=== PATIENT | female | born 1960 | race Caucasian/White ===

== ENCOUNTER 2024-08-16 11:58 | Outpatient (REF) | payer OTHER, SELFPAY ==
[2024-08-16 13:34] LABS: Estimated Average Glucose 117 mg/dL; Hemoglobin A1C 100.2615 umol/L; Hemoglobin A1c % 5.7 % (<6.0)
[2024-08-16 14:00] LABS: Anion Gap 12 (12-20); Blood Urea Nitrogen 26 mg/dL (9-16); Calcium 9.1 mg/dL (8.4-10.2); Carbon Dioxide 27 mmol/L (22-29); Chloride 109 mmol/L (96-108); Estimated Glomerular Filt Rate 26; Glucose Random 152 mg/dL (60-115); Potassium 4.7 mmol/L (3.3-5.1); Sodium 143 mmol/L (135-145)
[2024-08-16 14:12] LABS: TSH reflex Free T4 0.55 uIU/mL (0.32-4.0)
[2024-08-16 14:24] LABS: Folate 13.9 ng/mL (> or = 4.0); Vitamin B12 467 pg/mL (200-900)
== END 2024-08-16 11:59 | disposition home or self-care (01) ==
LOC: HO.LAB 11:58
PROVIDERS: PCP Internal Medicine; Visit Provider Psychiatry & Neurology Neurology
DX: R41.3 Other amnesia (principal)
CPT/HCPCS: 36415; 80048; 82607; 82746; 83036; 84443

== ENCOUNTER 2024-11-27 10:26 | Outpatient (REF) | payer OTHER, SELFPAY ==
--- NOTE | 2024-11-27 | EEG_ITS ---
Reason: Short term memory Medications: hydroxyzine, ferrous sulfate, humira, famotidine, allopurinol, clonidine, trazodone, venlafaxine History: PTSD, personality disorder, SVT, GERD, arthritis, HLD, CKD, diabetes, gout, migraine - Patient reports 11 years of short term memory loss. Manager Outpatient Comments Photic Stimulation: completed Hyperventilation: performed, fair effort Behavioral state: pleasant, cooperative State of consciousness: awake and sleep Skull defect: none Sedation: no Handedness: right handed Duration of study: 32 mins 9 secs Description: The waking background activity consists of a poorly modulated 8 hertz moderate voltage alpha with some scattered 7 hertz frequencies. Drowsiness accentuates the background slowing. Sleep stages entered with the appearance of symmetrical sleep spindles. Photic stimulation is without activation. Hyperventilation does not produce any significant background change. Impression: This EEG is considered borderline abnormal due to some scattered intermittent theta slowing that may suggest mild cerebral dysfunction. No seizure discharges are seen MTDD
--- OUTSIDE RECORDS SUMMARY | 2024-11-27 13:30 | XMS_ITS | Encounter Summary ---
Author Organization [facility] Address [address] [place] [address] Care Team Providers Care Software Licensing Analyst Name Role Phone Michael Schmidt MD Primary Care Provider Reason for Referral * Consultation (Routine) - Pending Review Specialty Diagnoses / Procedures Referred By Andreina randolph Referred To Contact Psychiatry Diagnoses PTSD (post-traumatic stress disorder) Recurrent major depressive disorder, in partial remission ([facility] V24) Diane Ramirez PA [address] [place], [place] Phone: tel: fax: Referral ID Status Reason Start Date Expiration Date Visits Requested Visits Authorized [id number] Pending Review Specialty Services Required 11/27/2024 11/27/2025 1 1 * Consultation (Urgent) - Pending Review Specialty Diagnoses / Procedures Referred By Andreina randolph Referred To Contact Podiatry / Orthopaedic Surgery Diagnoses Chronic gout 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, unspecified cause, unspecified laterality Diane Ramirez PA [address] [place], [place] Phone: tel: fax: Orthopedic Surgery [facility] [address] [place] [phone] Phone: tel: fax: Referral ID Status Reason Start Date Expiration Date Visits Requested Visits Authorized [id number] Pending Review Specialty Services Required 11/27/2024 11/27/2025 1 1 Reason for Visit * Reason Comments Gout Bilateral great toes Encounter Details Date Type Department Care Team (Late st Contact Info) Description 11/27/2024 1:30 PM EDT Office Visit Adult Medicine [facility] [address] [place], [place] [phone] Diane Ramirez PA [address] [place], [place] Chronic gout 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, unspecified cause, unspecified laterality (Primary Dx); Prurigo; Psoriasis; Lichen planus; PTSD (post-traumatic stress disorder); Recurrent major depressive disorder, in partial remission ([facility] V24) Social History Tobacco Use Types Packs/Day Years Used Date Smoking Tobacco: Never Smokeless Tobacco: Never Tobacco Cessation:Counseling Given: Not Answered Alcohol Use Standard Drinks/Week Comments Yes 0 (1 standard drink = 0.6 oz pure alcohol) one glass of wine, once a month Housing Instability Answer Date Recorde d Are you worried that in the next 2 months you may not have stable housing? No 11/27/2024 Food Access & Nutrition Answer Date Rec orded Do you have access to a vari ety of food including fruits and vegetables? Yes 11/27/2024 Health Literacy Answer Date Recorded How often do you need to hav e someone help you when you read instructions, pamphlets, or other written material from your doctor or pharmacy? Never 11/27/2024 Caregiver: How often do you need to have someone help you when you read instructions, pamphlets, or other written material from your doctor or pharmacy? Not on file 11/27/2024 Financial Risk Answer Date Recorded How hard is it for you to pa y for the very basics like food, housing, medical care, and air conditioning / heating? Not very hard 11/27/2024 Transportation Answer Date Recorded Has the lack of transportati on kept you from meetings, work, or from getting things needed for daily living? No Has the lack of transportati on kept you from medical appointments or from getting medications? No 11/27/2024 Social Isolation Answer Date Recorded How often do you feel lonely or isolated from th ose around you? Never 11/27/2024 Food Risk Answer Date Recorded Within the past 12 months we worried whether our food would run out before we got money to buy more. Never true 11/27/2024 Within the past 12 months th e food we bought just didn't last and we didn't have money to get more. Never true 11/27/2024 Dependent Care Answer Date Recorded Do you need help finding or paying for care for your loved ones. For example, childbirth and infant care teacher or elderly care for an older adult? No 11/27/2024 Education Answer Date Recorded Do you think completing more education or training, like finishing a GED, going to college, or learning a trade, would be helpful for you? No 11/27/2024 Employment and Income Answer Date Recor ded During the last four weeks, have you been actively looking for work? No 11/27/2024 Living Situation Answer Date Recorded What is your living situation? 0 11/27/2024 Comments No Sex and Gender Information Value Date Recorded Sex Assigned at Female 04/28/2024 9:49 AM EST Legal Sex Female 9:53 AM EST Gender Identity Female 04/28/2024 9:49 AM EST Sexual Orientation Not on file Occupation Industry Job Start Date Job End Date disability Not on file Not on file Not on file documented as of this encounter Last Filed Vital Signs Vital Sign Reading Time Taken Comments Blood Pressure 131/65 11/27/2024 1:08 PM EDT Pulse 59 11/27/2024 1:08 PM EDT Temperature 36.6 C (97.8 F) 11/27/2024 1:08 PM EDT Respiratory Rate 13 11/27/2024 1:08 PM EDT Oxygen Saturation 99% 11/27/2024 1:08 PM EDT Inhaled Oxygen Concentration - - Weight 53.6 kg (118 lb 3.2 oz) 11/27/2024 1:08 P M EDT Height 157.5 cm (5' 2 ) 11/27/2024 1:08 PM EDT Body Mass Index 21.62 11/27/2024 1:08 PM EDT documented in this encounter Functional Status * Are you deaf or do you have serious difficulty hearing? Answer Date of Assessment Author No 08/11/2024 4:44 AM EDT Lula Winter RN * Are you blind or do you have serious difficulty seeing, even when wearing glasses? Answer Date of Assessment Author No 08/11/2024 4:44 AM EDT Lula Winter RN * Do you have serious difficulty walking or climbing stairs? Answer Date of Assessment Author No 08/11/2024 4:44 AM EDT Lula Winter RN * Do you have serious difficulty dressing or bathing? Answer Date of Assessment Author Yes 08/11/2024 4:44 AM EDT Lula Winter RN * Because of a physical, mental, or emotional condition, do you have serious difficulty doing errandsalone such as visiting the doctor? Answer Date of Assessment Author No 08/11/2024 4:44 AM EDT Lula Winter RN documented as of this encounter Mental Status * Because of a physical, mental, or emotional condition, do you have serious difficulty concentrating, remembering, or making decisions? 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, unspecified cause, unspecified laterality; Alkaline phosphatase elevation 12/12/2024 11:10 AM EDT Office Visit Gastroenterology - [place] [address] [facility] [address] [facility] [address] [place] [phone] Omayra Garg PA [address] [facility] [address] [place] [address] 12/28/2024 10:15 AM EDT Office Visit Obstetrics and Gynecology - [address] [phone] Chelsea Christian CNM [address] [place] [address] 02/08/2025 11:00 AM EST Office Visit Adult Medicine East - [address] [phone] Michael Schmidt MD [address] [place] [address] 03/21/2025 9:20 AM EST Appointment Radiology Department - [address] [phone] 03/21/2025 10:00 AM EST Appointment Bone Density - [address] [phone] Scheduled Orders Name Type Priority Associated Diagnoses Orde r Schedule CBC and differential Lab Routine Chronic gout 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, unspecified cause, unspecified laterality 1 Occurrences starting 11/27/2024 until 11/27/2025 Comprehensive metabolic panel Lab Routine Chronic gout 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, unspecified cause, unspecified laterality 1 Occurrences starting 11/27/2024 until 11/27/2025 Uric acid Lab Routine Chronic gout 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, unspecified cause, unspecified laterality 1 Occurrences starting 11/27/2024 until 11/27/2025 Scheduled Referrals Name Type Priority Associated Diagnoses Order Schedule Ambulatory referral to Podiatry Outpatient Referral Routine Chronic gout 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, unspecified cause, unspecified laterality 1 Occurrences starting 11/27/2024 until 11/27/2025 Ambulatory referral to Psychiatry Outpatient Referral Routine PTSD (post-traumatic stress disorder) Recurrent major depressive disorder, in partial remission ([facility] V24) 1 Occurrences starting 11/27/2024 until 11/27/2025 documented as of this encounter Visit Diagnoses Diagnosis Chronic gout 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, unspecified cause, unspecified laterality- Primary Prurigo Psoriasis Other psoriasis Lichen planus PTSD (post-traumatic stress disorder) Posttraumatic stress disorder Recurrent major depressive disorder, in partial remission ([facility] V24) Chronic gout 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, unspecified cause, unspecified laterality Alkaline phosphatase elevation Other nonspecific abnormal serum enzyme levels documented in this encounter Orders Immunization/Injection Count Last Ordered Date First Ordered Date INFLUENZA TRIVALENT, MDCK, 0 .5ML, PRESERVATIVE FREE (FLUCELVAX) 6MO AND OLDER 1 11/27/2024 documented in this encounter Additional Health Concerns Assessment Noted Time PHQ-9 Depression Total Score: 0 11/28/19 25 1:09 PM EDT documented as of this encounter Care Teams Software Licensing Analyst Relationship Specialty Start Date End Date Michael Schmidt MD [address] [place] [phone] PCP - General 02/16/23 documented as of this encounter
--- OUTSIDE RECORDS SUMMARY | 2024-11-27 13:41 | XMS_ITS | Clinical Summary ---
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 detection of HIV infection by detecting the presence of the HIV-1 p24 antigen as well as the traditional antibodies to HIV type 1 (including group O) and type 2. Use of a 4th generation assay is the current CDC recommendation for HIV screening. Hilda HERNANDEZ LAB BLOOD ORDERABLES Final Resul t Performing Organization Address [facility]/ZIP Co de Phone Number [facility] [address] [place] [address], * Treponema pallidum antibody with reflex to RPR and particle agglutination (09/11/2024 3:34 PM EDT) T. Pallidum Antibodies Negative Negative LAB CHEMISTRY METHOD 09/12/2024 9:11 AM EDT [facility] Blood Venous blood specimen / Unknown Venipuncture / Unknown 09/11/2024 3:34 PM EDT 09/12/2024 7:46 AM EDT us Michael Schmidt MD LAB BLOOD ORDERABLES F inal Result Performing Organization Address City/[facility]/ZIP Co de Phone Number [facility] [address] [place] [address], [place] [phone] * Thyroid stimulating hormone with reflex to free t4 and free t3 (09/11/2024 3:34 PM EDT) TSH 0.74 0.40 - 4.00 mcIU/mL LAB CHEMISTRY METHOD 09/11/2024 7:29 PM EDT [facility] Blood Venous blood specimen / Unknown Venipuncture / Unknown 09/11/2024 3:34 PM EDT 09/11/2024 3:34 PM EDT us Michael Schmidt MD LAB BLOOD ORDERABLES F inal Result Performing Organization Address [facility]/ZIP Co de Phone Number [facility] [address] [place] [address], [place] [phone] * (ABNORMAL) Vitamin B12 and folate (09/11/2024 3:34 PM EDT) Vitamin B-12 413 250 - 900 pcg/mL LAB CHEMISTRY METHOD 09/11/2024 7:12 PM EDT [facility] Folate >20.0(H) 2.8 - 17.0 ng/ml LAB CHEMISTRY METHOD 09/11/2024 7:12 PM EDT [facility] Blood Venous blood specimen / Unknown Venipuncture / Unknown 09/11/2024 3:34 PM EDT 09/11/2024 3:34 PM EDT us Michael Schmidt MD LAB BLOOD ORDERABLES F inal Result [facility] [address] [place] [address], [place] [phone] * (ABNORMAL) Lipid panel with reflex to direct LDL (09/11/2024 3:34 PM EDT) Cholesterol 229(H) 0 - 200 mg/dL LAB CHEMISTRY METHOD 09/11/2024 6:42 PM EDT [facility] Triglycerides 146 0 - 150 mg/dL LAB CHEMISTRY METHOD 09/11/2024 6:42 PM EDT [facility] HDL 69 >=40 mg/dL LAB CHEMISTRY METHOD 09/11/2024 6:42 PM EDT [facility] LDL Calculated 131(H) 0 - 100 mg/dL LAB CHEMISTRY METHOD 09/11/2024 6:42 PM EDT [facility] VLDL Cholesterol John 29.2 mg/dL LAB CHEMISTRY METHOD 09/11/2024 6:42 PM EDT [facility] Non HDL Chol. (LDL+VLDL) 160(H) <145 mg/dL LAB CHEMISTRY METHOD 09/11/2024 6:42 PM EDT [facility] Chol/HDL Ratio 3.3 0.0 - 4.4 LAB CHEMISTRY METHOD 09/11/2024 6:42 PM EDT [facility] Blood Venous blood specimen / Unknown Venipuncture / Unknown 09/11/2024 3:34 PM EDT 09/11/2024 3:34 PM EDT us Hilda HERNANDEZ LAB BLOOD ORDERABLES Final Resul t [facility] [address] [place] [address], [place] [phone] * (ABNORMAL) CBC auto differential (09/11/2024 3:34 PM EDT) [facility] WBC 8.0 4.8 - 10.8 K/mcL LAB HEMETOLOGY METHOD 09/11/2024 6:10 PM EDT [facility] RBC 3.50(L) 3.80 - 4.80 M/mcL LAB HEMETOLOGY METHOD 09/11/2024 6:10 PM EDT [facility] Hemoglobin 10.4(L) 11.5 - 16.0 g/dL LAB HEMETOLOGY METHOD 09/11/2024 6:10 PM EDT [facility] Hematocrit 33.3(L) 35.0 - 47.0 % LAB HEMETOLOGY METHOD 09/11/2024 6:10 PM EDT [facility] MCV 94.3 79.0 - 98.0 FL LAB [facility]EMETOLOGY [facility]/11[facility]2024 [facility] MCH 29.5 27.0 - 32.0 pcg LAB HEMETOLOGY METHOD 09/11/2024 6:10 PM EDT [facility] MCHC 31.2(L) 32.0 - 37.0 g/dL LAB HEMETOLOGY METHOD 09/11/2024 6[facility] RDW 15.6(H) 11.0 - 15.0 % LAB HEMETOLOGY METHOD 09/11/2024 6:10 PM EDT [facility] Platelets 260 130 - 400 K/[facility] LAB HEMETOLOGY METHOD 09/11/2024 6:10 PM EDT [facility] MPV 11.6(H) 7.0 - 11.0 FL LAB HEMETOLOGY METHOD 09/11/2024 6:10 PM EDT [facility] NRBC 0.0 <1.0 % LAB HEMETOLOGY METHOD 09/11/2024 6:10 PM EDT [facility] NRBC Absolute 0.00 <0.10 K/[facility] LAB HEMETOLOGY METHOD 09/11/2024 6:10 PM EDT [facility] Neutrophils Relative 49.3 % LAB HEMETOLOGY METHOD 09/11/2024 6:10 PM T [facility] Lymphocytes Relative 41.2 % LAB HEMETOLOGY METHOD 09/11/2024 6:10 PM [facility] Monocytes Relative 7.2 % LAB HEMETOLOGY METHOD 09/11/2024 6:10 PM [facility] Eosinophils Relative 1.5 % LAB HEMETOLOGY METHOD 09/11/2024 6:10 PM [facility] Basophils Relative 0.6 % LAB HEMETOLOGY METHOD 09/11/2024 6:10 PM [facility] Immature Granulocytes Relative 0.2 % LAB HEMETOLOGY METHOD 09/11/2024 6:10 PM [facility] Neutrophils Absolute 3.94 1.50 - 7.00 K/mcL LAB HEMETOLOGY METHOD 09/11/2024 6:10 PM [facility] Lymphocytes Absolute 3.30 1.00 - 5.00 K/mcL LAB HEMETOLOGY METHOD 09/11/2024 6:10 PM [facility] Monocytes Absolute 0.58 0.20 - 1.00 K/mcL LAB HEMETOLOGY METHOD 09/11/2024 6:10 PM [facility] Eosinophils Absolute 0.12 0.00 - 0.50 K/mcL LAB HEMETOLOGY METHOD 09/11/2024 6:10 PM [facility] Basophils Absolute 0.05 0.00 - 0.20 K/mcL LAB HEMETOLOGY METHOD 09/11/2024 6:10 PM [facility] Immature Granulocytes Absolute 0.02 0.00 - 0.03 K/mcL LAB HEMETOLOGY METHOD 09/11/2024 6:10 PM [facility] Blood Venous blood specimen / Unknown Venipuncture / Unknown 09/11/2024 3:34 PM EDT 09/11/2024 3:34 PM EDT us Hilda HERNANDEZ LAB BLOOD ORDERABLES Final Resul t Performing Organization Address [facility]/ZIP Co de Phone Number [facility] [address] [place] [address], [place] [phone] * Microalbumin creatinine urine ratio (09/11/2024 3:34 PM EDT) Creatinine, Urine 226.0 mg/dL LAB CHEMISTRY METHOD 09/11/2024 7:39 PM EDT [facility] Microalb, Ur 18.9 0.0 - 29.0 mg/L LAB CHEMISTRY METHOD 09/11/2024 7:39 PM EDT [facility] Microalb/Creat Ratio 8 <30 mg/g creat LAB CHEMISTRY METHOD 09/11/2024 7:39 PM EDT [facility] Urine Urine specimen obtained by clean catch procedure / Unknown Non-blood Collection / Unknown 09/11/2024 3:34 PM EDT 09/11/2024 3:34 PM EDT us Hilda HERNANDEZ LAB URINE ORDERABLES Final Resul t Performing Organization Address City/[facility]/ZIP Co de Phone Number [facility] [address] [place] [address], [place] [phone] * Uric acid (09/11/2024 3:34 PM EDT) Uric Acid 4.3 3.1 - 7.8 mg/dL LAB CHEMISTRY METHOD 09/11/2024 6:42 PM EDT [facility] Blood Venous blood specimen / Unknown Venipuncture / Unknown 09/11/2024 3:34 PM EDT 09/11/2024 3:34 PM EDT us Hilda HERNANDEZ LAB BLOOD ORDERABLES Final Resul t Performing Organization Address City/[facility]/ZIP Co de Phone Number [facility] [address] [place] [address], [place] [phone] * Hemoglobin A1c (09/11/2024 3:34 PM EDT) Pathologist [facility] Hemoglobin A1C 6.0 <6.5 % LAB CHEMISTRY METHOD 09/11/2024 9:51 PM EDT [facility] Mean Bld Glu Estim. 126 mg/dL LAB CHEMISTRY METHOD 09/11/2024 9:51 PM EDT [facility] Blood Venous blood specimen / Unknown Venipuncture / Unknown 09/11/2024 3:34 PM EDT 09/11/2024 3:34 PM EDT us Hilda HERNANDEZ LAB BLOOD ORDERABLES Final Resul t Performing Organization Address [facility]/ZIP Co de Phone Number [facility] [address] [place] [address], [place] [phone] * (ABNORMAL) Comprehensive metabolic panel (09/11/2024 3:34 PM EDT) [facility] Sodium 142 133 - 145 mmol/L LAB CHEMISTRY METHOD 09/11/2024 6:42 PM EDT [facility] Potassium 4.7 3.5 - 5.5 mmol/L LAB CHEMISTRY METHOD 09/11/2024 6:42 PM EDT [facility] Chloride 112(H) 96 - 110 mmol/L LAB CHEMISTRY METHOD 09/11/2024 6:42 PM EDT [facility] CO2 25 21 - 32 mmol/L LAB CHEMISTRY METHOD 09/11/2024 6:42 PM EDT [facility] Anion Gap 5 3 - 11 LAB CHEMISTRY METHOD 09/11/2024 6:42 PM EDT [facility] Glucose 76 70 - 100 mg/dL LAB CHEMISTRY METHOD 09/11/2024 6:42 PM [facility] BUN 22 5 - 25 mg/dL LAB CHEMISTRY METHOD 09/11/2024 6:42 PM [facility] Creatinine 1.89(H) 0.50 - 1.10 mg/dL LAB CHEMISTRY METHOD 09/11/2024 6:42 PM [facility] eGFR 30(L) >=60 mL/min/1. 73m2 LAB CHEMISTRY METHOD 09/11/2024 6:42 PM [facility] Comment:Calculation based on the Chronic Kidney Disease Epidemiology Collaboration (CKD-EPI) equation refit without adjustment for race. BUN/Creatinine Ratio 11.6 LAB CHEMISTRY METHOD 09/11/2024 6:42 PM [facility] Calcium 9.0 8.5 - 10.5 mg/dL LAB CHEMISTRY METHOD 09/11/2024 6:42 PM [facility] AST (SGOT) 22 10 - 42 unit/L LAB CHEMISTRY METHOD 09/11/2024 6:42 PM [facility] ALT (SGPT) 18 10 - 60 unit/L LAB CHEMISTRY METHOD 09/11/2024 6:42 PM [facility] Alkaline Phosphatase 156(H) 42 - 121 unit/L LAB CHEMISTRY METHOD 09/11/2024 6:42 PM [facility] Total Protein 7.3 6.0 - 8.0 g/dL LAB CHEMISTRY METHOD 09/11/2024 6:42 PM [facility] Albumin 3.7 3.2 - 5.0 g/dL LAB CHEMISTRY METHOD 09/11/2024 6:42 PM [facility] Total Bilirubin 0.4 0.0 - 1.4 mg/dL LAB CHEMISTRY METHOD 09/11/2024 6:42 PM [facility] Blood Venous blood specimen / Unknown Venipuncture / Unknown 09/11/2024 3:34 PM EDT 09/11/2024 3:34 PM EDT Hilda HERNANDEZ LAB BLOOD ORDERABLES Final Resul t [facility]MANI BILL [place] ([facility]) [facility] [address] [place] [address], * External Colonoscopy Report (01/12/2023 12:00 AM EDT) Anatomical Region Laterality Modality Endoscopy Historical Provider GI~PROCEDURE ORDERABLES E dited Result - Final * SCR MAMMO BI INCL CAD (08/05/2017 11:04 AM EDT) Anatomical Region Laterality Modality Radiographic Sherin ging 05/20/2016 8:31 AM EST Narrative 08/05/2017 11:35 AM EDT This is a summary report. The complete report is available in the patient's medical record. If you cannot access the medical record, please contact the sending organization for a detailed fax or copy. Full field digital screening mammography, reviewed with CAD and compared to previous. The breasts are composed mostly of fatty tissue. No suspicious mass, architectural distortion or suspicious calcifications are identified. IMPRESSION: : No mammographic evidence of malignancy. BIRADS 1-Negative; N. 5 year breast cancer risk assessment 0.6 % Lifetime breast cancer risk assessment 4.2 % Breast cancer risk category Low (<15%) Procedure Note Marianela Damico, DO - 03/02/2022 This is a summary report. The complete report is available in thepatient's medical record. If you cannot access the medical record, pleasecontact the sending organization for a detailed fax or copy. Full field digital screening mammography, reviewed with CAD and comparedto previous. The breasts are composed mostly of fatty tissue. Nosuspicious mass, architectural distortion or suspicious calcifications areidentified. IMPRESSION: : No mammographic evidence of malignancy. BIRADS 1-Negative; N. 5 year breast cancer risk assessment 0.6 % Lifetime breast cancer risk assessment 4.2 % Breast cancer risk category Low (<15%) Gracie Smith MD IMG XR PROCEDURES Final Result from Last 3 Months or Most Recently Relevant to Health Maintenance Insurance [facility] [place] [address] Care Teams Industrial Engineering Relationship Specialty Start Date End Date Michael Schmidt MD [address] [place] [address] PCP - General 02/16/23
--- OUTSIDE RECORDS SUMMARY | 2024-11-27 13:41 | XMS_ITS | Encounter Summary ---
Author Organization [employer] Address [address] [place] [address] Care Team Providers Care Manager Php Name Role Phone Michael Schmidt MD Primary Care Provider Reason for Visit * Reason Onset Date Comments PT 1 11/20/2024 Encounter Details Date Type Department Care Team (Late st Contact Info) Description 11/20/2024 Telephone Adult Medicine [facility] [address] [place], [place] [phone] Michael Schmidt MD [address] [place], [place] Social History Tobacco Use Types Packs/Day Years Used Date Smoking Tobacco: Never Smokeless Tobacco: Never Alcohol Use Standard Drinks/Week Comments Yes 0 (1 standard drink = 0.6 oz pure alcohol) one glass of wine, once a month Comments Unknown Sex and Gender Information Value Date Recorded Sex Assigned at Female 04/28/2024 9:49 AM EST Legal Sex Female 9:53 AM EST Gender Identity Female 04/28/2024 9:49 AM EST Sexual Orientation Not on file Occupation Industry Job Start Date Job End Date disability Not on file Not on file Not on file documented as of this encounter Functional Status * Are you deaf or do you have serious difficulty hearing? Answer Date of Assessment Author No 08/11/2024 4:44 AM Lula Guerra RN * Are you blind or do you have serious difficulty seeing, even when wearing glasses? Answer Date of Assessment Author No 08/11/2024 4:44 AM Lula Guerra RN * Do you have serious difficulty walking or climbing stairs? Answer Date of Assessment Author No 08/11/2024 4:44 AM Lula Guerra RN * Do you have serious difficulty dressing or bathing? Answer Date of Assessment Author Yes 08/11/2024 4:44 AM Lula Guerra RN * Because of a physical, mental, or emotional condition, do you have serious difficulty doing errandsalone such as visiting the doctor? Answer Date of Assessment Author No 08/11/2024 4:44 AM Lula Guerra RN documented as of this encounter Mental Status * Because of a physical, mental, or emotional condition, do you have serious difficulty concentrating, remembering, or making decisions? (5 years old or older) Answer Entry Date Author Yes 08/11/2024 4:44 AM Lula Guerra RN documented in this encounter Progress Notes * Adamaris Ratliff RN - 11/20/2024 9:42 AM EDT Pain from gout is in both great toes. Called I earlier but needed to know where pain is She has been taking the meds for more than a year but was told that she needed to be seen for a refill this time. Scheduled eval for 11/23 at 10:45 with 30 min Needs PT 1 * Jovita Adams - 11/20/2024 9:26 AM EDT Patient call requires triage: Symptoms patient is presenting: gout big toes How long has patient had these symptoms?: 2 weeks For ALL patients calling to schedule any appointment (routine, sick visit, follow up, consult, etc.) in the outpatient setting please ask the following questions: Do you have fever of higher than 101, sore throat with difficulty swallowing or severe shortness ofbreath? no If YES to any of these above symptoms, send a message to triage and do not book. Red dot. If no, an audio or video visit should be booked. Have you had close contact with someone with Coronavirus in the last 14 days? no Have you traveled abroad? no Have you traveled recently to another state outside of [place], [place], [place], [place], [place], [place], [place]? no o If yes, did you quarantine for 14 days or have a negative covid test? no If yes to any of the above, patient is not to be scheduled in office until after 14 day quarantine or negative covid test. If pain or injury related was it due to an accident at work or from a motor vehicle accident? If yes, date of accident/Injury: No If yes, gather 3rd libertarian insurance information Third Green Party Information: not applicable PCP: Michael Schmidt MD Payor: [employer] PLAN / Plan: [employer] / Product Type: *No Product type* / documented in this encounter Plan of Treatment Upcoming Encounters Date Type Department Care Team (Late st Contact Info) Description 11/27/2024 2:00 PM EDT Lab Draw Station - [address] Chronic gout 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, unspecified cause, unspecified laterality; Alkaline phosphatase elevation 12/12/2024 11:10 AM EDT Office Visit Gastroenterology - [place] 175 [facility] 175 [facility] [address] [place] [phone] Omayra Garg PA 175 [facility] Mikey [address] [place] [id number] 12/28/2024 10:15 AM EDT Office Visit Obstetrics and Gynecology - [address] [phone] Chelsea Christian CNM [address] [place] [address] 02/08/2025 11:00 AM EST Office Visit Adult Medicine East - [address] [phone] Michael Schmidt MD [address], [place] 03/21/2025 9:20 AM EST Appointment Radiology Department - [address] [phone] 03/21/2025 10:00 AM EST Appointment Bone Density - [address] [phone] documented as of this encounter Visit Diagnoses Not on filedocumented in this encounter Care Teams Manager Php Relationship Specialty Start Date End Date Michael Schmidt MD [address] [place] [address] PCP - General 02/16/23 documented as of this encounter
--- OUTSIDE RECORDS SUMMARY | 2024-11-27 13:41 | XMS_ITS | Encounter Summary ---
Author Organization [employer] Address [address] [place] [address] Care Team Providers Care Bar Hostess Name Role Phone Michael Schmidt MD Primary Care Provider Reason for Visit * Reason Onset Date Comments Med Refill 11/09/2024 Encounter Details Date Type Department Care Team (Late st Contact Info) Description 11/09/2024 Telephone Adult Medicine [facility] [address] [place], [place] [phone] Michael Schmidt MD [address] [place], [place] Social History Tobacco Use Types Packs/Day [...] Lula Guerra RN documented in this encounter Ordered Prescriptions Prescription Sig Dispense Quantity Refills Last Filled Start Date End Date polyethylene glycol (PEG) 17 gram/dose oral powder Take 17 g by mouth 1 (one) time each day if needed for constipation . 850 g 3 11/13/2024 documented in this encounter Progress Notes * Sowmya Maya RN - 11/15/2024 2:01 PM EDT Called and spoke with pts daughter who called. Advised miralax sent. She sts mother just keeps calling her stating needing medication for gout flare ups. She doesn't know where is having pain if red swollen or warm. She states will have to call her and find out and will call back * Kely Orona MA - 11/15/2024 1:21 PM EDT Patient is returning a missed call from yesterday. * Adamaris Ratliff RN - 11/14/2024 8:25 AM EDT Left vm for pt to return my call. * Michael Schmidt MD - 11/13/2024 5:46 PM EDT I have sent prescription for MiraLAX. Please triage regarding symptoms for gout, see if she still having gout. She will need to be seen. * Gracie Rodriguez - 11/09/2024 11:05 AM EDT Patient daughter called in stating her mother needs medication for gout and miralax generic brand. States she doesn't know the name of the medication and just tell Dr Schmidt it's for her gout and he will know what to prescribe. I don't see anything on her medication list for the Miralax ?? Refills on Current Medication List MED NAME: SEE ABOVE PREFERRED PHARMACY: [facility] [address] [facility] 105 [facility] [phone] [facility] at [address] [address] Patient would like script to be: E-PRESCRIBED/FAXED TO PHARMACY BY THE END OF THE DAY WHEN WAS THE PATIENT'S LAST APPOINTMENT IN ADULT MEDICINE? 07/24/24 WHEN WAS THE LAST TIME THE PATIENT SAW THEIR PCP? Same as above Does patient have an upcoming appointment? Yes 02/08/25 (THE MEDICATION REQUESTED IS ON THE MED LIST ABOVE) BOTH MEDICATIONS WERE ON MEDICATION LIST Did you check the Pharmacy information above?: yes Patient wants: 90-day supply Is this a mail order prescription request?: no If the refill is from a FAXED refill request what is the RX # listed on the fax? 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, unspecified cause, unspecified laterality; Alkaline phosphatase elevation 12/12/2024 11:10 AM EDT Office Visit Gastroenterology - [place] 175 [facility] 175 [facility] [address] [place] [phone] Omayra Garg PA 175 [facility] Mikey [address] [place] [address] 12/28/2024 10:15 AM EDT Office Visit Obstetrics and Gynecology - [address] [phone] Chelsea Christian [address] 02/08/2025 11:00 AM EST Office Visit Adult Medicine East - [address] [phone] Michael Schmidt MD [address] [place] [address] 03/21/2025 9:20 AM EST Appointment Radiology Department - [address] [phone] 03/21/2025 10:00 AM EST Appointment Bone Density - [place] [address] [place], [place] [phone] documented as of this encounter Visit Diagnoses Not on filedocumented in this encounter Discontinued Medications Medication Sig Discontinue Reason Start Date End Da te polyethylene glycol (PEG) 17 gram/dose oral powder Take 17 g by mouth. Reorder 06/29/202304/2024 documented as of this encounter Care Teams Bar Hostess Relationship Specialty Start Date End Date Michael Schmidt MD [address] [place] [address] PCP - General 02/16/23 documented as of this encounter
== END 2024-11-27 10:27 | disposition home or self-care (01) ==
LOC: HO.NEURO 10:26
PROVIDERS: PCP Internal Medicine; Visit Provider Psychiatry & Neurology Neurology
DX: R41.3 Other amnesia (principal)
CPT/HCPCS: 95816

== ENCOUNTER → 2024-11-27 10:26 | Outpatient (BNV) | payer OTHER, SELFPAY | PROVIDERS: PCP Internal Medicine; Visit Provider Psychiatry & Neurology Neurology | DX: R41.3 Other amnesia (principal) | CPT/HCPCS: 95819 ==

== ENCOUNTER 2024-12-18 09:28 | Outpatient (AMB) | payer OTHER, SELFPAY ==
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
--- OUTSIDE RECORDS SUMMARY | 2024-12-18 10:39 | XMS_ITS | Encounter Summary ---
Author Organization [facility] Address [address] [place] [address] Care Team Providers Care Entry Level Buyer Name Role Phone Michael Schmidt MD Primary Care Provider Reason for Visit * Reason Onset Date Comments PT-1 12/14/2024 Encounter Details Date Type Department Care Team ([facility] st Contact Info) Description 12/14/2024 Telephone Adult Medicine [address] [phone] Maya [place], [place] Social History Tobacco Use Types Packs/Day [...] care for your loved ones. For example, child and family services worker or elderly care for an older adult? [...] Date Recorded What is your living situation? Unrecognized valu e 11/27/2024 Comments No Sex and Gender Information [...] of Assessment Author No 08/11/2024 4:44 AM EDLula Darling RN documented as of this encounter Mental Status * Because of a physical, mental, or emotional condition, do you have serious difficulty concentrating, remembering, or making decisions? (5 years old or older) Answer Entry Date Author Yes 08/11/2024 4:44 AM EDT Lula Winter RN documented in this encounter Progress Notes * Natalya Vora MA - 12/18/2024 9:03 AM EDT Pt'1 submitted Tracking # [id number] [address] Velasquez Pt has escort. * Kely Orona MA - 12/14/2024 10:46 AM EDT PT-1 Request Call [facility] new provider or submitter number is [id number] Verify and document patients [place] Health insurance ID # (NOT [facility] ID): Payor: [facility] HEALTH PLAN / Plan: [facility] MEDICAID / Product Type: *No Product type* / [id number] Payor: [facility] HEALTH PLAN / Plan: [facility] MEDICAID / Product Type: *No Product type* / Patient mailing address: [address] [place] [id number] (home) Pt. demographics verified? yes If not accurate, update registration. Is this a NEW request or a RENEWAL? New request Name of treating facility: [facility] Name (first & last) of treating provider? required : TBD What is the medical reason why the patient is seeing the above provider? SPREADING CIRCLES ALL OVERTHE BODY Address/Zip code for treating provider: [address] [place] [address] Phone # for treating provider: [phone] Is the provider in the [facility] (do they accept [place] Health insurance)? yes What specialtly is this provider? DERMATOLOGY When is the visit scheduled for? 12/19/24 How often you will be seeing this particular provider? 6 VISITS FOR 1 YR Do you have friends or family who can transport you to this visit? no If yes, do not complete request. Is there anything stopping you from using public transportation? If yes, explain: yes Is there a medical reason (diagnosis) why you are unable to use public transportation? If yes, explain: Yes,MEMORY LOSS Does patient carry self-administered oxygen? no Does patient require door through door or room to room service( ex: member cannot ambulate or wait independently outside their home/facility for transportation. no Is this is for an Adult Day Program or Suboxone clinic No If yes to above what is arrival time and what is departure time If yes to above how many days a week? Do you need a wheelchair van? no If you use a wheelchair what is the height, width & length of the wheelchair? Do you need an escort to accompany you? If yes, explain why. yes DAUGHTER MARIOLA WILL ESCORT THEPATIENT Will you have an alternative pick-up address? no Do you have a service animal? no PT DOES NOT NEED RELEASE OF INFORMATION SIGNED documented in this encounter Plan of Treatment Upcoming Encounters Date Type Department Care Team (Late st Contact Info) Description 12/25/2024 10:00 AM EDT Office Visit Adult Medicine East - [address] [phone] Michael Schmidt MD [address] [place] [address] 12/28/2024 10:15 AM EDT Office Visit Obstetrics and Gynecology - [address] [phone] Chelsea Christian CNM [address] [place], [place] 02/05/2025 10:00 AM EST Consult Orthopedic Surgery - [place] [address] [phone] Octavio Alcaraz DPM [address] [phone] 02/08/2025 11:00 AM EST Office Visit Adult Medicine East - [place] [address] [place] [address] Michael Schmidt MD [address] [place] [address] 02/19/2025 12:30 PM EST Appointment [facility] Endoscopy [address] [place] [phone] Gael Ma MD [address] [address] 03/21/2025 9:20 AM EST Appointment Radiology Department - [address] [phone] 03/21/2025 10:00 AM EST Appointment Bone Density - [address] [phone] 06/12/2025 10:30 AM EDT Office Visit Gastroenterology - [place] 175 [facility] [address] [phone] Omayra Garg PA [address] [address] documented as of this encounter Goals Goal Patient Goal Type Associated Problems Recent Progress Patient-Stated? Author Autogenerat ed Goal Care Plan Autogenerated Problem Stephane Alfred documented as of this encounter Visit Diagnoses Not on filedocumented in this encounter Additional Health Concerns Active Problems Noted Date Diagnosed Date Autogenerated Problem 12/14/2024 Assessment Noted Time PHQ-9 Depression Total Score: 0 11/28/19 25 1:09 PM EDT documented as of this encounter Care Teams Entry Level Buyer Relationship Specialty Start Date End Date Michael Schmidt MD [address] [place] [address] PCP - General 02/16/23 documented as of this encounter
--- OUTSIDE RECORDS SUMMARY | 2024-12-18 10:39 | XMS_ITS | Encounter Summary ---
Author Organization [facility] Address [address] [place] [address] Care Team Providers Care Pit Steward Name Role Phone Michael Schmidt MD Primary Care Provider Reason for Visit * Reason Onset Date Comments Medication Problem 12/18/2024 Encounter Details Date Type Department Care Team ([facility] st Contact Info) Description 12/18/2024 Telephone Adult Medicine [facility] [address] [place], [place] [phone] Michael Schmidt MD [address] [place], [place] Social History Tobacco Use Types Packs/Day [...] care for your loved ones. For example, vocational childcare teacher or elderly care for an older [...] Assessment Author No 08/11/2024 4:44 AM Lula Guerra, SOMANY * Are you blind or do you [...] documented in this encounter Progress Notes * Ale Rausch - 12/18/2024 9:34 AM EDT Medication Problem: What is the name of the medication patient is having a problem with?: all meds, What is the problem?: scripts from 11/30 per caller were not received by [facility]. Daughter wants a call back, she did not want hear that meds were sent to the pharmacy on the and confirmation was received. She wants to go over al the meds and any that do not have refills, she wants refilled. Who is calling about the problem? : Other: Name of caller: Mariola Relationship to patient: daughter Is this a NEW medication?: no How long has the patient been taking this medication? ongoing Who prescribed this medication for the patient? PCP Who is patients PCP?: Michael Schmidt MD Payor: [facility] HEALTH PLAN / Plan: [facility] MEDICAID / Product Type: *No Product type* / documented in this encounter Plan of Treatment Upcoming Encounters Date Type Department Care Team ([facility] st Contact Info) Description 12/25/2024 10:00 AM EDT Office Visit Adult Medicine [address] [phone] Michael Schmidt MD [address] [place] [address] 12/28/2024 10:15 AM EDT Office Visit Obstetrics and Gynecology - [address] [phone] Chelsea Christian CNM [address] [place] [address] 02/05/2025 10:00 AM EST Consult Orthopedic Surgery - [place] [address] [phone] Octavio Alcaraz DPSharon [address] [phone] 02/08/2025 11:00 AM EST Office Visit Adult Medicine East - [address] [phone] Michael Schmidt MD [address] [place] [address] 02/19/2025 12:30 PM EST Appointment [facility] Endoscopy [address] [place] [phone] Gael Ma MD [address] [address] 03/21/2025 9:20 AM EST Appointment Radiology Department - [address] [phone] 03/21/2025 10:00 AM EST Appointment Bone Density - [address] [phone] 06/12/2025 10:30 AM EDT Office Visit Gastroenterology - [place] [address] [place] [phone] Omayra Garg PA [address] [place] [address] [place] [address] documented as of this encounter Goals Goal Patient Goal Type Associated Problems Recent Progress Patient-Stated? Author Autogenerat ed Goal Care Plan Autogenerated Problem No Stephane Cast documented as of this encounter Visit Diagnoses Not on filedocumented in this encounter Additional Health Concerns Active Problems Noted Date Diagnosed Date Autogenerated Problem 12/14/2024 Assessment Noted Time PHQ-9 Depression Total Score: 0 11/28/19 25 1:09 PM EDT documented as of this encounter Care Teams Pit Steward Relationship Specialty Start Date End Date Michael Schmidt MD [address] [place] [address] PCP - General 02/16/23 documented as of this encounter
--- OUTSIDE RECORDS SUMMARY | 2024-12-18 10:39 | XMS_ITS | Encounter Summary ---
Author Organization [facility] Address [address] [place] [address] Care Team Providers Care Sliver Lap Machine Tender Name Role Phone Michael Schmidt MD Primary Care Provider Reason for Visit * Reason Onset Date Comments PT-1 12/14/2024 Encounter Details Date Type Department Care Team ([facility] st Contact Info) Description 12/14/2024 Telephone Adult Medicine [address] [phone] [place], [place] Social History Tobacco Use Types Packs/Day [...] care for your loved ones. For example, early childhood educator aide or elderly care for an older adult? [...] Notes * Natalya Vora MA - 12/18/2024 9:02 AM EDT Pt1 submitted Tracking # [id number] 12 visits per year [facility] Escort needed. * Kely Orona MA - 12/14/2024 10:36 AM EDT [facility] Medicaid [facility] new provider or submitter number is [id number] Verify and document patients [place] Health insurance ID # (NOT [facility] ID): [facility] [id number] Payor: [employer] / Plan: [employer] MEDICAID / Product Type: *No Product type* / Patient mailing address: [address] [place] [address] (home) Pt. demographics verified? yes If not accurate, update registration. Is this a NEW request or a RENEWAL? Renewal Name of treating facility: [facility] Name (first & last) of treating provider? required : TBD What is the medical reason why the patient is seeing the above provider? appointments Address/Zip code for treating provider: [address] [place] [address] Phone # for treating provider: [phone] Is the provider in the [facility] network (do they accept [place] Health insurance)? yes What specialtly is this provider? LAB AND OBGYN AND PRIMARY CARE When is the visit scheduled for? TBD How often you will be seeing this particular provider? 12 times per year Do you have friends or family who can transport you to this visit? no If yes, do not complete request. Is there anything stopping you from using public transportation? If yes, explain: yes Is there a medical reason (diagnosis) why you are unable to use public transportation? If yes, explain: Yes,memory loss Does patient carry self-administered oxygen? no Does [...] accompany you? If yes, explain why. yes Will you have an alternative pick-up address? no Do you have a service animal? no PT DOES NOT NEED RELEASE OF INFORMATION SIGNED documented in this encounter Plan of Treatment Upcoming Encounters Date Type Department Care Team (Late st Contact Info) Description 12/25/2024 10:00 AM EDT Office Visit Adult Medicine [address] [phone] Michael Schmidt MD [address] [place] [address] 12/28/2024 10:15 AM EDT Office Visit Obstetrics and Gynecology - [address] [phone] Chelsea Christian CNM [address] [place] [address] 02/05/2025 10:00 AM EST Consult Orthopedic Surgery - [address] [phone] Octavio Alcaraz, DPM 175 [facility] [address] [place] [phone] 02/08/2025 11:00 AM EST Office Visit Adult Medicine East - [address] [phone] Michael Schmidt MD [address] [place], [place] 02/19/2025 12:[address] [facility] Endoscopy [address] [place] [phone] Gael Ma MD [address] [address] 03/21/2025 9:20 AM EST Appointment Radiology Department - [address] [phone] 03/21/2025 10:00 AM EST Appointment Bone Density - [address] [phone] 06/12/2025 10:30 AM EDT Office Visit Gastroenterology - [place] 175 [facility] [address] [phone] Omayra Garg PA [address] [address] documented as of this encounter Goals Goal [...] documented as of this encounter Care Teams Sliver Lap Machine Tender Relationship Specialty Start Date End Date Michael Schmidt MD [address] [place] [address] PCP - General 02/16/23 documented as of this encounter
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
--- OUTSIDE RECORDS SUMMARY | 2024-12-18 10:40 | XMS_ITS | Clinical Summary ---
Author Organization Formerly [facility] Address [address] [place] [id number] Phone Care Team Providers Care Applications Engineering Manager Name Role Phone Michael Schmidt MD Primary Care Provider Allergies Active Allergy Reactions Criticality Noted Date Comments Dextroamphetamine-Amphe tamine Other (See Comments) 06/28/2013 Makes her grind her teeth & makes her tongue feel heavy Honey Flavor 02/09/2011 Ibuprofen 01/21/2020 Latex Anaphylaxis High 11/23/2010 Penicillins Anaphylaxis High 11/23/2010 Aatiw-Enkxzwu-Inggar 06/28/2013 Sulfa (Sulfonamide Antibiotics) Itching 11/23/2010 Herpes-like ulcers Sulfasalazine Itching 11/23/2010 Herpes-like ulcers Acetaminophen 01/21/2020 Medications cloNIDine HCL (CATAPRES) 0.3 MG tablet Take 0.3 mg by mouth daily. Active EPINEPHrine (EPIPEN, ADRENACLICK) 0.3 mg/0.3 mL auto-injector INJECT 0.3 MG DIRECTED NEEDED FOR ANAPHYLAXSIS. INJECT DIRECTED. 7 Active meclizine (ANTIVERT) 25 mg tablet Take 25 mg by mouth. 7 Active albuterol (PROAIR HFA) 90 mcg/actuation inhaler INHALE 2 PUFFS INTO THE LUNGS EVERY 4 HOURS NEEDED FOR COUGH OR SHORTNESS OF BREATH. 7 Active venlafaxine (EFFEXOR-XR) 150 MG 24 hr capsule Take 150 mg by mouth. 7 Active cetirizine (ZYRTEC) 10 MG tablet Take 10 mg by mouth daily. Active hydrOXYzine (ATARAX) 25 MG tablet Take 25 mg by mouth 3 (three) times a day as needed for itching. Active clobetasol (CLOBEX) 0.05 % lotion Apply topically 2 (two) times a day. Active pantoprazole (PROTONIX) 40 MG tablet Take 40 mg by mouth daily. 3 Active sucralfate (CARAFATE) 1 gram tablet Take 1 g by mouth. With meals 5 Active venlafaxine (EFFEXOR-XR) 37.5 MG 24 hr capsule Take 37.5 mg by mouth daily. 4 Active traZODone (DESYREL) 100 MG tablet Take 50 mg by mouth nightly at bedtime as needed. 5 Active ondansetron (ZOFRAN) 4 MG tablet Take 4 mg by mouth every 8 (eight) hours as needed. 4 Active allopurinol (ZYLOPRIM) 100 MG tabletIndications: Idiopathic chronic gout of multiple sites without tophus Take 1 tablet (100 mg total) by mouth 2 (two) times a day. 180 tablet 3 5 Active adalimumab (HUMIRA) 40 mg/0.4 mL pen kit citrate freeIndications:Ps oriatic arthritis Inject 0.4 mL (40 mg total) under the skin every 7 days. 1.6 mL 3 5 Active lidocaine (LIDODERM) 5 %Indications:Psori atic arthritis,Primary osteoarthritis involving multiple joints Place 1 patch onto the skin daily. Place 1 patch nightly 30 patch 3 5 Active Active Problems Problem Noted Date Diagnosed Date Postmenopausal 09/07/2024 Assessment & Plan (10/07/2024 3:12 PM EDT): Encouraged to continue proper calcium and vitamin D supplementation, fall and fracture prevention strategies and daily weightbearing exercises. Type 2 diabetes mellitus, wi th long-term current use of insulin 04/11/2023 Assessment & Plan (09/07/2024 9:43 AM EDT): Follow-up with PCP and diabetic management team as instructed. Aim at blood sugars 90-120 mg % Assessment & Plan (09/04/2023 7:43 PM EDT): Follow-up with PCP and diabetic management team as instructed. Aim at blood sugars 90-120 mg % Assessment & Plan (04/12/2023 11:02 AM EST): Follow-up with PCP and diabetic management team as instructed. Aim at blood sugars 90-120 mg % Weight loss 04/11/2023 Assessment & Plan (04/12/2023 11:04 AM EST): Eat small, regular well-balanced nutritionally meals 4-5 times daily. If unable to hold/regain weight consider nutritional support by adding either Ensure or [place] breakfast for diabetics. Advice given about COVID-19 virus infection 11/13 Assessment & Plan (12/09/2020 6:14 PM EDT): Due to ongoing immunosuppression with weekly Humira injections she would benefit from COVID-19 Pfizer booster vaccine dose 8 months from 2nd dose that she received on 2020 which means on 04/01/2021. Need for immunization against influenza 11/28/19 21 Gastroesophageal reflux dise ase with esophagitis without hemorrhage 11/27/2020 Assessment & Plan (09/07/2024 9:43 AM EDT): Avoid late, large, spicy meals. Keep headboard elevated at 45 angle for nighttime. Assessment & Plan (08/29/2023 2:19 PM EDT): Avoid late, large, spicy meals. Keep headboard elevated at 45 angle for nighttime. Assessment & Plan (11/27/2020 9:19 AM EDT): Avoid late, large, spicy meals. Keep headboard elevated at 45 angle for nighttime. Trochanteric bursitis of right hip 11/23/2018 Assessment & Plan (11/23/2018 9:25 AM EDT): Procedure: After an informed oral consent, under sterile conditions using Ethyl chloride spray for local anesthesia I have injected 40 mg DepoMedrol and 2 cc 1% Lidocaine into Right trochanteric bursa uneventfully. Details of post-procedure care were explained to the patient in the office and given in writing. LFT elevation 11/23/2018 Assessment & Plan (05/16/2020 2:19 PM EST): Decrease frequency of meloxicam from every day to every other day and if possible further to every third day Avoid Tylenol, alcohol, high cholesterol and saturated fat products. Assessment & Plan (01/22/2020 8:17 PM EST): Decrease frequency of meloxicam from every day to every other day and if possible further to every third day Avoid Tylenol, alcohol, high cholesterol and saturated fat products. Assessment & Plan (12/19/2018 8:11 PM EDT): Hold Tylenol and oral NSAIDs as much [...] and coffee and green tea in moderation. Acute pain of left knee 07/04/2017 Psoriatic arthritis 04/11/2017 Assessment & Plan (10/07/2024 3:10 PM EDT): Clinically and laboratory duggan appears stable on weekly subcutaneous Humira. New set of labs requested today-results pending. Minimize oral NSAIDs and Tylenol in view of elevated LFTs in favor of topical cream versus patch. Keep well hydrated and avoid any teff-bqg-dneqokc nonsteroidal anti-inflammatory medications or alcohol. Get labs prior to next visit in 4 mths. Watch diet for calories and saturated fats to reduce fatty liver infiltration. Avoid sick contacts. Call if problems or questions. Assessment & Plan (06/17/2024 2:56 PM EDT): New set of labs requested today-results pending. Minimize oral NSAIDs and Tylenol in view of elevated LFTs in favor of topical cream versus patch. Keep well hydrated and avoid any btdw-jxc-yomfrjz nonsteroidal anti-inflammatory medications or alcohol. Get labs prior to next visit in 4 mths. Watch diet for calories and saturated fats to reduce fatty liver infiltration. Avoid sick contacts. Call if problems or questions. Update your hepatitis B, pneumonia, yearly influenza and COVID-19 vaccination status prior to consideration of restarting Humira. Procedure: After an informed oral/written consent, under sterile conditions using Ethyl chloride spray for local anesthesia and 3 cc 1% Lidocaine as topical anesthetic I have injected 40 mg Kenalog and 2 cc 1% Lidocaine into Left knee from medial approach uneventfully. Details of post-procedure care were explained to the patient in the office and given in writing. Provider: Petrona Nash MD Patient: Lawanda Quach : 1960 Date: 05/18/2024 Procedure: After an informed written consent, under sterile conditions using Ethyl chloride spray for local anesthesia I have injected 20 mg Kenalog and 0.5 cc 1% Lidocaine into Right 1st CMC joint uneventfully. Details of post-procedure care were explained to the patient in the office and given in writing. Provider: Petrona Nash MD Patient: Lawanda Quach : 1960 Date: 05/18/2024 Assessment & Plan (09/04/2023 7:43 PM EDT): New set of labs requested today Minimize oral NSAIDs and Tylenol in view of elevated LFTs in favor of topical cream versus patch. Keep well hydrated and avoid any vxni-rgb-dsobzdt nonsteroidal anti-inflammatory medications or alcohol. Get labs prior to next visit in 3 mths. Watch her diet for calories and saturated fats to reduce fatty liver infiltration. Avoid sick contacts. Call if problems or questions. Update your hepatitis B, pneumonia, yearly influenza and COVID-19 vaccination status prior to consideration of restarting Humira. Assessment & Plan (04/12/2023 11:00 AM EST): New set of labs and x-rays requested today since I have not seen her for almost 2.5 years. Minimize oral NSAIDs and Tylenol in view of elevated LFTs in favor of topical cream versus patch. Keep well hydrated and avoid any iais-njh-shqamfd nonsteroidal anti-inflammatory medications or alcohol. Get labs prior to next visit in 3 mths. Watch her diet for calories and saturated fats to reduce fatty liver infiltration. Avoid sick contacts. Call if problems or questions. Update your pneumonia, yearly influenza and COVID-19 vaccination status prior to consideration of restarting Humira. Assessment & Plan (12/09/2020 6:12 PM EDT): Carefully continue weekly subcutaneous Humira injections every Tuesday. Minimize oral NSAIDs and Tylenol in view of elevated LFTs in favor of topical cream versus patch. Keep well hydrated and avoid any qrtt-uvx-ifgdykq nonsteroidal anti-inflammatory medications or alcohol. Get labs prior to next visit in 3 mths. Watch her diet for calories and saturated fats to reduce fatty liver infiltration. Avoid sick contacts. Call if problems or questions. She is ready for yearly influenza vaccine today. Update your pneumonia vaccination status with your PCP Assessment & Plan (09/30/2020 9:26 AM EDT): She had labs monitoring safety and efficacy of antirheumatic therapy earlier this morning that are still pending. Carefully continue weekly subcutaneous Humira injections every Tuesday. Minimize oral NSAIDs and Tylenol in view of elevated LFTs in favor of topical cream versus patch. Keep well hydrated and avoid any ylqy-yfo-nagqnyc nonsteroidal anti-inflammatory medications or alcohol. Get labs prior to next visit in 6 wks. Watch her diet for calories and saturated fats to reduce fatty liver infiltration. Avoid sick contacts. Call if problems or questions. Update your pneumonia vaccination status with your PCP Assessment & Plan (05/16/2020 2:33 PM EST): Get monitoring labs within the next couple days- once her family can bring her to laboratory-orders in [facility]. Once checked by the surgeon and assured that postsurgical scar healed she can resume subcutaneous Humira injections every 7 days. Minimize oral NSAIDs and Tylenol in view of elevated LFTs in favor of topical cream versus patch. Keep well hydrated and avoid any ywsu-ehx-alvtewc nonsteroidal anti-inflammatory medications or alcohol. Get labs prior to next visit in 6 wks. Watch her diet for calories and saturated fats to reduce fatty liver infiltration. Avoid sick contacts. Call if problems or questions. Update your pneumonia vaccination status with your PCP Assessment & Plan (01/22/2020 8:14 PM EST): Continue subcutaneous Humira injections every 7 days. Minimize oral NSAIDs and Tylenol in view of elevated LFTs in favor of topical cream versus patch. Keep well hydrated and avoid any ztlh-lbu-irvtcfl nonsteroidal anti-inflammatory medications or alcohol. Get labs prior to next visit in 6 wks. Watch her diet for calories and saturated fats to reduce fatty liver infiltration. Avoid sick contacts. Call if problems or questions. Update your pneumonia vaccination status with your PCP Procedure: After an informed oral consent, under sterile conditions using Ethyl chloride spray for local anesthesia I have injected 20 mg DepoMedrol and 0.5 cc 1% Lidocaine into R 1st CMC joint uneventfully. Details of post-procedure care were explained to the patient in the office and given in writing. Assessment & Plan (08/23/2019 10:08 PM EDT): Continue subcutaneous Humira injections every 7 days. Minimize oral NSAIDs and Tylenol in view of elevated LFTs in favor of topical cream versus patch. Keep well hydrated and avoid any jflh-qom-yjknjer nonsteroidal anti-inflammatory medications or alcohol. Get labs prior to next visit in 2 months. Watch her diet for calories and saturated fats to reduce fatty liver infiltration. Avoid sick contacts. Call if problems or questions. Update your pneumonia vaccination status with your PCP Assessment & Plan (04/13/2019 10:57 AM EST): Continue subcutaneous Humira injections every 7 days. Minimize oral NSAIDs and Tylenol in view of elevated LFTs in favor of topical cream versus patch. Keep well hydrated and avoid any mwbs-mus-noktknh nonsteroidal anti-inflammatory medications or alcohol. Watch her diet for calories and saturated fats to reduce fatty liver infiltration. Avoid sick contacts. Call if problems or questions. Update your pneumonia vaccination status with your PCP Assessment & Plan (12/19/2018 7:55 PM EDT): Continue subcutaneous Humira injections every 7 days. Minimize oral NSAIDs and Tylenol in view of elevated LFTs in favor of topical cream versus patch. Keep well hydrated and avoid any qvny-ann-wxvyplm nonsteroidal anti-inflammatory medications or alcohol. Watch her diet for calories and saturated fats to reduce fatty liver infiltration. Avoid sick contacts. Call if problems or questions. Get yearly flu vaccine & Shingrix by mid 2018. Update your pneumonia vaccination status with your PCP Assessment & Plan (07/18/2018 2:49 PM EDT): Due to ongoing clinical synovitis involving her right wrist, MCP joints, hips, ankles and MTP joints with ongoing CRP elevation I concur with careful increase of frequency of her Humira injections to every 7 days in an attempt to control her disease. Once improved control achieved return to every 14 days Humira administration. Keep well hydrated and avoid any lgqg-zgp-vguomdz nonsteroidal anti-inflammatory medications or alcohol. Watch her diet for calories and saturated fats to reduce fatty liver infiltration. Continue subcutaneous Humira injections-request to her insurance for prior authorization every 7 days administration that worked for her in the past. Avoid sick contacts. Call if problems or questions. Assessment & Plan (04/25/2018 10:22 PM EST): New set of labs requested today. Keep well hydrated and avoid any uxwg-exu-gxlvdky nonsteroidal anti-inflammatory medications or alcohol. Watch her diet for calories and saturated fats to reduce fatty liver infiltration. Continue subcutaneous every 14 days Humira injections. Avoid sick contacts. Call if problems or questions. Due to her recent shingles and chronic immunosuppression with Humira she is at increased risk for another bout therefore she would benefit from Shingrix vaccine. Assessment & Plan (11/24/2017 3:12 PM EDT): Patient's polyarticular flare of psoriatic arthritis and diffuse plaque psoriasis will be treated with an intramuscular 80 mg Depo-Medrol injection today. I refilled the prescription for Humira making sure that she has the injector pen and other medications will continue unchanged. She will let us know if her progress within the next 48 hours and follow-up with Dr. Garg when she returns. Primary osteoarthritis involving multiple joints 04/11/2017 Assessment & Plan (09/07/2024 9:43 AM EDT): Joint protection,energy conservation. Avoid falls, injuries, overuse. Topical cream versus patch. Gentle, regular exercise routine. Make sure to keep body weight in ideal range for her height. Call if questions or problems, ready for formal PT or local steroid injection. Assessment & Plan (06/17/2024 2:56 PM EDT): Joint protection,energy conservation. Avoid falls, injuries, overuse. Topical cream versus patch. Gentle, regular exercise routine. Make sure to keep body weight in ideal range for her height. Call if questions or problems, ready for formal PT or local steroid injection. Assessment & Plan (04/12/2023 11:00 AM EST): Joint protection,energy conservation. Avoid falls, injuries, overuse. Topical cream versus patch. Gentle, regular exercise routine. Make sure to keep body weight in ideal range for her height. Call if questions or problems, ready for formal PT or local steroid injection. Assessment & Plan (11/27/2020 9:10 AM EDT): Joint protection,energy conservation. Avoid falls, injuries, overuse. Topical cream versus patch. Gentle, regular exercise routine. Make sure to keep body weight in ideal range for her height. Call if questions or problems, ready for formal PT or local steroid injection. Assessment & Plan (09/26/2020 9:22 AM EDT): Joint protection,energy conservation. Avoid falls, injuries, overuse. Topical cream versus patch. Gentle, regular exercise routine. Make sure to keep body weight in ideal range for her height. Call if questions or problems, ready for formal PT or local steroid injection. Procedure: After an informed oral consent, under sterile conditions using Ethyl chloride spray for local anesthesia I have injected 40 mg DepoMedrol and 2 cc 1% Lidocaine into Left knee from infero-medial approach uneventfully. Details of post-procedure care were explained to the patient in the office and given in writing. Provider: Petrona Nash MD Patient: Lawanda Quach : 1960 Date: 09/26/2020 Assessment & Plan (05/16/2020 2:33 PM EST): Joint protection,energy conservation. Avoid falls, injuries, overuse. Topical cream versus patch. Gentle, regular exercise routine. Make sure to keep body weight in ideal range for her height. Call if questions or problems, ready for formal PT or local steroid injection. Assessment & Plan (01/22/2020 8:15 PM EST): Joint protection,energy conservation. Avoid falls, injuries, overuse. Topical cream versus patch. Gentle, regular exercise routine. Call if questions or problems, ready for formal PT or local steroid injection. Assessment & Plan (08/23/2019 8:15 AM EDT): Joint protection,energy conservation. Avoid falls, injuries, overuse. Topical cream versus patch. Gentle, regular exercise routine. Call if questions or problems, ready for formal PT or local steroid injection. Assessment & Plan (04/13/2019 10:59 AM EST): Joint protection,energy conservation. Avoid falls, injuries, overuse. Topical cream versus patch. Gentle, regular exercise routine. Call if questions or problems, ready for formal PT or local steroid injection. Procedure: After an informed oral consent, under sterile conditions using Ethyl chloride spray for local anesthesia and 3 cc 1% Lidocaine as topical anesthetic I have injected 40 mg DepoMedrol and 3 cc 1% Lidocaine into Left knee from infero- lateral approach uneventfully. Details of post-procedure care were explained to the patient in the office and given in writing. Assessment & Plan (11/23/2018 9:35 AM EDT): Joint protection,energy conservation. Avoid falls, injuries, overuse. Topical cream versus patch. Gentle, regular exercise routine. Call if questions or problems, ready for formal PT or local steroid injection. Assessment & Plan (07/18/2018 2:50 PM EDT): Joint protection,energy conservation. Avoid falls, injuries, overuse. Topical cream versus patch. Gentle, regular exercise routine. Call if questions or problems, ready for formal PT or local steroid injection. Assessment & Plan (04/25/2018 10:23 PM EST): Joint protection,energy conservation. Avoid falls, injuries, overuse. Topical cream versus patch. Gentle, regular exercise routine Idiopathic chronic gout of multiple sites renetta fitzgerald 04/11/2017 Assessment & Plan (09/07/2024 9:43 AM EDT): New set of labs requested today. Keep well-hydrated. Low purine diet. Strategy for acute gouty attack reviewed in details. Assessment & Plan (05/18/2024 2:54 PM EST): New set of labs requested today. Keep well-hydrated. Low purine diet. Strategy for acute gouty attack reviewed in details. Assessment & Plan (08/29/2023 2:19 PM EDT): New set of labs requested today. Keep well-hydrated. Low purine diet. Strategy for acute gouty attack reviewed in details. Assessment & Plan (04/12/2023 11:01 AM EST): New set of labs requested today. Keep well-hydrated. Low purine diet. Strategy for acute gouty attack reviewed in details. Assessment & Plan (11/27/2020 9:10 AM EDT): Try to decrease daily allopurinol from 200 mg daily to 150 mg daily in an attempt to decrease elevated LFTs. Keep well-hydrated. Low purine diet. Strategy for acute gouty attack reviewed in details. Assessment & Plan (09/26/2020 9:06 AM EDT): Try to decrease daily allopurinol from 200 mg daily to 150 mg daily in an attempt to decrease elevated LFTs. Keep well-hydrated. Low purine diet. Strategy for acute gouty attack reviewed in details. Assessment & Plan (05/16/2020 2:34 PM EST): Try to decrease daily allopurinol from 200 mg daily to 150 mg daily in an attempt to decrease elevated LFTs. Keep well-hydrated. Low purine diet. Strategy for acute gouty attack reviewed in details. Assessment & Plan (01/22/2020 8:13 PM EST): Try to decrease daily allopurinol from 200 mg daily to 150 mg daily in an attempt to decrease elevated LFTs. Keep well-hydrated. Low purine diet. Strategy for acute gouty attack reviewed in details. Assessment & Plan (08/23/2019 8:14 AM EDT): Continue allopurinol as prescribed. Keep well-hydrated. Low purine diet. Strategy for acute gouty attack reviewed in details. Assessment & Plan (04/17/2019 5:37 PM EST): Continue allopurinol as prescribed. Keep well-hydrated. Low purine diet. Strategy for acute gouty attack reviewed in details. Assessment & Plan (11/23/2018 9:35 AM EDT): Continue allopurinol as prescribed. Keep well-hydrated. Low purine diet. Strategy for acute gouty attack reviewed in details. Assessment & Plan (07/18/2018 2:51 PM EDT): Continue allopurinol as prescribed. Keep well-hydrated. Low purine diet. Strategy for acute gouty attack reviewed in details. Assessment & Plan (04/25/2018 10:24 PM EST): Continue allopurinol as prescribed. Keep well-hydrated. Low purine diet. Strategy for acute gouty attack reviewed in details. Adalimumab (Humira) long-term use 04/11/2017 Assessment & Plan (09/07/2024 9:43 AM EDT): Avoid sick contacts, keep up-to-date with vaccinations. Hold Humira whenever running fever, feeling sick or taking antibiotics. Make sure to complete antibiotic course and wait at least 48 hours after the last dose of antibiotic to make sure that symptoms do not recur before restarting usual every 7 days Humira subcutaneous injections. Inform any new medical doctor, FUNCTIONAL TESTER or PA about chronic immunosuppression with Humira, particularly in emergency situations. Assessment & Plan (05/18/2024 2:54 PM EST): Avoid sick contacts, keep up-to-date with vaccinations. Hold Humira whenever running fever, feeling sick or taking antibiotics. Make sure to complete antibiotic course and wait at least 48 hours after the last dose of antibiotic to make sure that symptoms do not recur before restarting usual every 7 days Humira subcutaneous injections. Inform any new medical doctor, FUNCTIONAL TESTER or PA about chronic immunosuppression with Humira, particularly in emergency situations. Assessment & Plan (11/27/2020 9:11 AM EDT): Avoid sick contacts, keep up-to-date with vaccinations. Hold Humira whenever running fever, feeling sick or taking antibiotics. Make sure to complete antibiotic course and wait at least 48 hours after the last dose of antibiotic to make sure that symptoms do not recur before restarting usual every 7 days Humira subcutaneous injections. Inform any new medical doctor, FUNCTIONAL TESTER or PA about chronic immunosuppression with Humira, particularly in emergency situations. Assessment & Plan (09/26/2020 9:07 AM EDT): Avoid sick contacts, keep up-to-date with vaccinations. Hold Humira whenever running fever, feeling sick or taking antibiotics. Make sure to complete antibiotic course and wait at least 48 hours after the last dose of antibiotic to make sure that symptoms do not recur before restarting usual every 7 days Humira subcutaneous injections. Inform any new medical doctor, FUNCTIONAL TESTER or PA about chronic immunosuppression with Humira, particularly in emergency situations. Assessment & Plan (05/16/2020 2:18 PM EST): Avoid sick contacts, keep up-to-date with vaccinations. Hold Humira whenever running fever, feeling sick or taking antibiotics. Make sure to complete antibiotic course and wait at least 48 hours after the last dose of antibiotic to make sure that symptoms do not recur before restarting usual every 7 days Humira subcutaneous injections. Inform any new medical doctor, FUNCTIONAL TESTER or PA about chronic immunosuppression with Humira, particularly in emergency situations. Assessment & Plan (01/22/2020 8:17 PM EST): Avoid sick contacts, keep up-to-date with vaccinations. Hold Humira whenever running fever, feeling sick or taking antibiotics. Make sure to complete antibiotic course and wait at least 48 hours after the last dose of antibiotic to make sure that symptoms do not recur before restarting usual every 7 days Humira subcutaneous injections. Inform any new medical doctor, FUNCTIONAL TESTER or PA about chronic immunosuppression with Humira, particularly in emergency situations. Assessment & Plan (08/23/2019 10:08 PM EDT): Avoid sick contacts, keep up-to-date with vaccinations. Hold Humira whenever running fever, feeling sick or taking antibiotics. Make sure to complete antibiotic course and wait at least 48 hours after the last dose of antibiotic to make sure that symptoms do not recur before restarting usual every 7 days Humira subcutaneous injections. Inform any new medical doctor, FUNCTIONAL TESTER or PA about chronic immunosuppression with Humira, particularly in emergency situations. Assessment & Plan (04/17/2019 5:36 PM EST): Avoid sick contacts, keep up-to-date with vaccinations. Hold Humira whenever running fever, feeling sick or taking antibiotics. Inform any new medical doctor, FUNCTIONAL TESTER or PA about chronic immunosuppression with Humira, particularly in emergency situations. Assessment & Plan (07/18/2018 2:53 PM EDT): Avoid sick contacts, keep up-to-date with vaccinations. Hold Humira whenever running fever, feeling sick or taking antibiotics. Inform any new medical doctor, FUNCTIONAL TESTER or PA about chronic immunosuppression with Humira, particularly in emergency situations. Assessment & Plan (04/25/2018 10:24 PM EST): Hold Humira whenever running fever, feeling sick or taking antibiotics. Inform any new medical doctor, FUNCTIONAL TESTER or PA about chronic immunosuppression with Humira, particularly in emergency situations. On allopurinol therapy 04/11/2017 Assessment & Plan (09/07/2024 9:43 AM EDT): Keep well-hydrated and monitor serum uric acid to keep it below 6 mg % Assessment & Plan (05/18/2024 2:54 PM EST): Keep well-hydrated and monitor serum uric acid to keep it below 6 mg % Assessment & Plan (08/29/2023 2:19 PM EDT): Keep well-hydrated and monitor serum uric acid to keep it below 6 mg % Assessment & Plan (04/12/2023 11:02 AM EST): Keep well-hydrated and monitor serum uric acid to keep it below 6 mg % Assessment & Plan (11/27/2020 9:10 AM EDT): Decrease daily dose from 200 mg to 150 mg in attempt to reduce LFTs elevation and at the same time not to allow hyperuricemia to develop. Assessment & Plan (09/26/2020 9:06 AM EDT): Decrease daily dose from 200 mg to 150 mg in attempt to reduce LFTs elevation and at the same time not to allow hyperuricemia to develop. Assessment & Plan (05/16/2020 2:20 PM EST): Decrease daily dose from 200 mg to 150 mg in attempt to reduce LFTs elevation and at the same time not to allow hyperuricemia to develop. Assessment & Plan (01/22/2020 8:19 PM EST): Decrease daily dose from 200 mg to 150 mg in attempt to reduce LFTs elevation and at the same time not to allow hyperuricemia to develop. Assessment & Plan (08/23/2019 8:21 AM EDT): Drink 6-8 glasses (8 oz each) daily, most of it no later than ~ 5-6 :00 pm Continue low purine diet Consider solis juice/tart Joint protection/ energy conservation Avoid falls/injuries Assessment & Plan (04/13/2019 10:55 AM EST): Drink 6-8 glasses (8 oz each) daily, most of it no later than ~ 5-6 :00 pm Continue low purine diet Consider solis juice/tart Joint protection/ energy conservation Avoid falls/injuries Assessment & Plan (11/23/2018 9:38 AM EDT): Drink 6-8 glasses (8 oz each) daily, most of it no later than ~ 5-6 :00 pm Continue low purine diet Consider solis juice/tart Joint protection/ energy conservation Avoid falls/injuries Assessment & Plan (07/18/2018 2:54 PM EDT): Drink 6-8 glasses (8 oz each) daily, most of it no later than ~ 5-6 :00 pm Continue low purine diet Consider solis juice/tart Joint protection/ energy conservation Avoid falls/injuries Assessment & Plan (04/25/2018 10:25 PM EST): Drink 6-8 glasses (8 oz each) daily, most of it no later than ~ 5-6 :00 pm Continue low purine diet Consider solis juice/tart Joint protection/ energy conservation 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 Keep blood sugars in 90- 110 mg % range. Assessment & Plan (08/23/2019 8:20 AM EDT): Follow closely with PCP/diabetes nurse educator. Keep blood sugars in 90- 110 mg % range. Assessment & Plan (04/13/2019 10:56 AM EST): Follow closely with PCP/diabetes nurse educator. Keep blood sugars in 90- 110 mg % range. Assessment & Plan (11/23/2018 9:36 AM EDT): Follow closely with PCP/diabetes nurse educator. Keep blood sugars in 90- 110 mg % range. Assessment & Plan (07/18/2018 2:54 PM EDT): Follow closely with PCP/diabetes nurse educator. Keep blood sugars in 90- 110 mg % range. Assessment & Plan (04/25/2018 10:26 PM EST): Follow closely with PCP/diabetes nurse educator. Keep blood sugars in 90- 110 mg % range. Vitamin D insufficiency 04/11/2017 Assessment & Plan (05/16/2020 2:34 PM EST): Continue proper supplementation as prescribed. Assessment & Plan (08/23/2019 8:22 AM EDT): Continue proper supplementation as prescribed. Assessment & Plan (04/25/2018 10:27 PM EST): Continue proper supplementation as reviewed to prevent from insufficiency/deficiency. Angel's tenosynovitis, right 04/11/2017 Resolved Problems Problem Noted Date Diagnosed Date Resolved Date Vitamin B12 deficiency 04/11/202309/03 Assessment & Plan (04/12/2023 11:03 AM EST): Serum level requested in view of significant weight loss to make sure that she does not need additional supplementation to keep it in optimal range. 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 Remember to take it always with food. Favor topical over oral preparations. Assessment & Plan (01/22/2020 8:19 PM EST): Take the lowest dose, with least frequency, for shortest time. Remember to take it always with food. Favor topical over oral preparations. Assessment & Plan (08/23/2019 8:21 AM EDT): Take the lowest dose, with least frequency, for shortest time. Remember to take it always with food. Favor topical over oral preparations. Assessment & Plan (04/13/2019 10:55 AM EST): Take the lowest dose, with least frequency, for shortest time. Remember to take it always with food. Favor topical over oral preparations. Assessment & Plan (11/23/2018 9:37 AM EDT): Take the lowest dose, with least frequency, for shortest time. Remember to take it always with food. Favor topical over oral preparations. Assessment & Plan (07/18/2018 2:53 PM EDT): Take the lowest dose, with least frequency, for shortest time. Remember to take it always with food. Favor topical over oral preparations. Assessment & Plan (04/25/2018 10:25 PM EST): Take the lowest dose, with least frequency, for shortest time. Remember to take it always with food. Favor topical over oral preparations. 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 Limit concentrated sugars, saturated fats and calories in the diet. Keep well-hydrated. If unable to achieve expected goal consider formal dietary/nutritional support. Assessment & Plan (05/16/2020 2:19 PM EST): Portion control. Limit concentrated sugars, saturated fats and calories in the diet. Keep well-hydrated. If unable to achieve expected goal consider formal dietary/nutritional support. Assessment & Plan (01/22/2020 8:14 PM EST): Portion control. Limit concentrated sugars, saturated fats and calories in the diet. Keep well-hydrated. If unable to achieve expected goal consider formal dietary/nutritional support. Assessment & Plan (04/13/2019 10:56 AM EST): Portion control. Limit concentrated sugars, saturated fats and calories in the diet. Keep well-hydrated. If unable to achieve expected goal consider formal dietary/nutritional support. Assessment & Plan (11/23/2018 9:36 AM EDT): Portion control. Limit concentrated sugars, saturated fats and calories in the diet. Keep well-hydrated. If unable to achieve expected goal consider formal dietary/nutritional support. Assessment & Plan (07/18/2018 2:51 PM EDT): Portion control. Limit concentrated sugars, saturated fats and calories in the diet. Keep well-hydrated. If unable to achieve expected goal consider formal dietary/nutritional support. Assessment & Plan (04/25/2018 10:28 PM EST): Portion control. Limit concentrated sugars, saturated fats and calories in the diet. Keep well-hydrated. If unable to achieve expected goal consider formal dietary/nutritional support. Encounters Date Type Department Care Team Description 12/17/2024 Documentation [facility] [address] [place] [id number] Gracie Ta RPH from Last 3 Months Immunizations Immunization Administration Dates Next Due Hepatitis B CpG 12/03/2023,11/02/2023 INFLUENZA, SPLIT VIRUS, TRIVALENT PF 11/02/2023 INFLUENZA, SPLIT VIRUS, TRIV ALENT W/ PRESERVATIVE IM 12/31/2014,01/29/2014,11/21/2012,03/30,11/23/2010 Influenza Quadrivalent MDCK w/Preservative IM 12/23/2017,11/26/2016 Influenza Quadrivalent Prese rvative Free IM 11/27/2020,10/13/2019,12/26/2018 Influenza, Unspecified Formulation 11/14/2023,,12/26/2018 Pneumococcal polysaccharide PPSV23 10/30/2014 RSV Vaccine (monovalent, adjuvanted) 05/15/2023 Tdap 06/10/2022,11/23/2010 Zoster recombinant 01/27/2020,01/01/2019 Social History Tobacco Use Types Packs/Day Years Used Date Smoking Tobacco: Never Smokeless Tobacco: Never Alcohol Use Standard Drinks/Week Comments No 0 (1 standard drink = 0.6 oz pur e alcohol) Education Answer Date Recorded Are you interested in more education? Not on edgar e 07/09/2022 Are you concerned about learning? Not on file 07/09/2022 No 07/09/2022 No 07/09/2022 Digital Access Answer Date Recorded No 08/09/2022 No 08/09/2022 Reliable internet access at home? Not on file 08/09/2022 Device with a working camera? Not on file Comments No Sex and Gender Information Value Date Recorded Sex Assigned at Not on file Legal Sex Female 9:44 PM EDT Gender Identity Not on file Sexual Orientation Not on file Last Filed Vital Signs Vital Sign Reading Time Taken Comments Blood Pressure 110/70 09/07/2024 9:30 AM EDT Pulse 61 09/07/2024 9:30 AM EDT Temperature - - Respiratory Rate - - Oxygen Saturation 99% 09/07/2024 9:30 AM EDT Inhaled Oxygen Concentration - - Weight 53.2 kg (117 lb 3.2 oz) 09/07/2024 9:30 A M EDT Height 157.5 cm (5' 2 ) 09/07/2024 9:30 AM EDT Body Mass Index 21.44 09/07/2024 9:30 AM EDT Plan of Treatment Upcoming Encounters Date Type Department Care Team (Late st Contact Info) Description 01/07/2025 11:30 AM EDT Office Visit [facility] Rheumatology [address] [place] [address] Petrona Nash MD [address] [facility], [address] [place] [address] [email or web address] Health Maintenance Due Date Last Done Comments DEPRESSION SCREENING 1974 HIV ONE-TIME SCREENING (18-65 YEARS) 1980 PAP SMEAR 07/31/1983 MAMMOGRAM 2002 COLOGUARD 07/31/2007 COLONOSCOPY 07/31/2007 COLORECTAL CANCER SCREENING 07/31/2007 FIT TEST 07/31/2007 FOBT 07/31/2007 SIGMOIDOSCOPY 07/31/2007 VIRTUAL COLONOSCOPY 07/31/2007 PNEUMOCOCCAL VACCINES (50+ years) (2 of 2 - PCV) 10/31/2015 10/30/2014 HEMOGLOBIN A1C 12/25/2020 06/25/2020, 12/12, 04/25/2019, Additional history exists LIPID PANEL 06/25/2021 06/25/2020, 04/14, 11/10/2018, Additional history exists DIABETIC EYE EXAM 04/11/2023 URINE MICROALBUMIN/CREATININE RATIO 04/11/2023 12/24/2019, 06/09/2018, 09/01/2017 INFLUENZA VACCINE (#1) 2024 , 11/02/2023, 11/27/2020, Additional history exists COVID-19 VACCINE ( season) 2024 05/15/2023, 04/18/2021, 2020, Additional history exists BLOOD PRESSURE 03/09/2025 09/07/2024 CREATININE LEVEL 05/18/2025 05/18/2024, , 05/09/2023, Additional history exists Adult Td,Tdap Booster 06/10/2032 06/10/2022, 011 ZOSTER VACCINES Completed 01/27/2020, 01/01/2019 RSV VACCINE Completed 05/15/2023 HEPATITIS C SCREENING Completed 08/29/2023 SMOKING STATUS SCREENING (Once After 26 Yrs) Completed 09/07/2024 HEPATITIS A VACCINES Aged Out No long er eligible based on patient's age to complete this topic HIB VACCINES Aged Out No longer eligi ble based on patient's age to complete this topic MENINGOCOCCAL VACCINES (ACWY) Aged Out No longer eligible based on patient's age to complete this topic MENINGOCOCCAL VACCINES (B) Aged Out N o longer eligible based on patient's age to complete this topic Medical Devices Not on file Procedures Procedure Name Priority Date/Time Associated Diagnosis Comments COMPREHENSIVE METABOLIC PANEL Routine 05/18/2024 12:43 PM EST Psoriatic arthritis Idiopathic chronic gout of multiple sites without tophus On allopurinol therapy HEPATITIS C ANTIBODY, QUALITATIVE Routine 08/29/2023 2:27 PM EDT Psoriatic arthritis Need for hepatitis C screening test from Last 3 Months or Most Recently Relevant to Health Maintenance Results * (ABNORMAL) Comprehensive metabolic panel (05/18/2024 12:43 PM EST) SODIUM 142 133 - 146 mmol/L [facility] POTASSIUM 4.3 3.3 - 5.1 mmol/L [facility] CHLORIDE 108 96 - 108 mmol/L [facility] CO2 26 21 - 35 mmol/L [facility] BUN 24(H) 6 - 19 mg/dL [facility] CREATININE 1.80(H) 0.5 - 1.5 mg/dL [facility] GLUCOSE 108(H) 70 - 99 mg/dL [facility] ALBUMIN 3.8(L) 3.9 - 4.8 g/dL [facility] TOTAL PROTEIN 7.0 6.5 - 8.0 g/dL [facility] CALCIUM 8.8 8.4 - 10.3 mg/dL [facility] ALKALINE PHOSPHATASE 122(H) 39 - 117 U/L [facility] TOTAL BILIRUBIN <0.2 0.0 - 1.2 mg/dL [facility] AST 23 0 - 37 U/L [facility] ALT 16 0 - 40 U/L [facility] GLOBULIN 3.2 1 - 4.8 g/dL [facility] EGFR 32(L) >59 mL/min/1.7 3m2 [facility] Comment:Estimated glomerular filtration rate calculated using the CKD-EPI refit equation. ANION GAP 12 10 - 20 mmol/L [facility] Blood 05/18/2024 12:4 3 PM EST 05/18/2024 12:46 PM EST Petrona Nash MD LAB BLOOD ORDERABLES Fin al Result Performing Organization Address City/[facility] Co de Phone Number [address] [address] * Hepatitis C antibody, qualitative (08/29/2023 2:27 PM EDT) HCV NON-REACTIV E NON-REACTI VE [facility] Blood 08/29/2023 2:27 PM EDT 08/29/2023 2:35 PM EDT Petrona Nash MD LAB BLOOD ORDERABLES Fin al Result Performing Organization Address City/[facility]/ZIP Co de Phone Number [address] [address] from Last 3 Months or Most Recently Relevant to Health Maintenance Insurance [facility] [email or web address] [facility] [employer]) [employer] [facility] [email or web address] [employer] [facility] [employer] [facility] [employer] Care Teams Applications Engineering Manager Relationship Specialty Start Date End Date Michael Schmidt MD [address] [place] [address] PCP - General Internal Medicine 09/07/24 Additional Source Comments The information contained in this document represents components of the legal health record. It is not the complete legal health record.[facility]ly [facility]
--- OUTSIDE RECORDS SUMMARY | 2024-12-18 10:40 | XMS_ITS | Encounter Summary ---
Author Organization [facility] Address [address] [place] [address] Care Team Providers Care Nurse Emergency Name Role Phone Michael Schmidt MD Primary Care Provider Encounter Details Date Type Department Care Team (Late st Contact Info) Description 12/10/2024 Results Follow-Up Adult Medicine [facility] [address] [place], [place] [phone] Hilda Rincon PA [address] [place], [place] Social History Tobacco Use Types Packs/Day [...] care for your loved ones. For example, director child abuse therapy or elderly care for an older adult? [...] 10:00 AM EDT Office Visit Adult Medicine [address] [phone] Michael Schmidt MD [address] [place] [address] 12/28/2024 10:15 AM EDT Office Visit Obstetrics and Gynecology [address] [phone] Chelsea Christian CNM [address] [place] [address] 02/05/2025 10:00 AM EST Consult Orthopedic Surgery - [place] [address] [phone] Octavio Alcaraz DPM [address] [phone] 02/08/2025 11:00 AM EST Office Visit Adult Medicine [address] [phone] Michael Schmidt MD [address] [place], [place] 02/19/2025 12:30 PM EST Appointment [facility] Endoscopy [address] [place] [phone] Gael Ma MD [address] [address] 03/21/2025 9:20 AM EST Appointment Radiology Department - [address] [phone] 03/21/2025 10:00 AM EST Appointment Bone Density - [address] [phone] 06/12/2025 10:30 AM EDT Office Visit Gastroenterology - [place] [address] [facility] [address] [phone] Omayra Garg PA [address] [address] documented as of this encounter Visit Diagnoses Not on filedocumented in this encounter Additional Health Concerns Assessment Noted Time PHQ-9 Depression Total Score: 0 11/28/19 25 1:09 PM EDT documented as of this encounter Care Teams Nurse Emergency Relationship Specialty Start Date End Date Michael Schmidt MD [address] [place], [place] PCP - General 02/16/23 documented as of this encounter
--- OUTSIDE RECORDS SUMMARY | 2024-12-18 10:40 | XMS_ITS | Encounter Summary ---
Author Organization [facility] Address [address] [place] [phone] Phone Care Team Providers Care Freelance Writer Name Role Phone Michael Schmidt MD Primary Care Provider Encounter Details Date Type Department Care Team (Late st Contact Info) Description 12/17/2024 Documentation [facility] [address] [place] [phone] Gracie Ta [facility] [address] [place] [address] Social History Tobacco Use Types Packs/Day Years [...] on file Sexual Orientation Not on file documented as of this encounter Progress Notes * Cortney Baum - 12/17/2024 1:12 PM EDT [facility] Prior Authorization Approval Medication/Formulation/Frequency: Humira 40mg/0.4mL Pen Sig: Inject 1 pen under the skin every 7 days. Status: Renewal Insurance Plan/Phone number: [facility] Reference Number/Mine Captain Name (if applicable): Reference ID: [id number] Approval Dates: 12/14/2024 - 12/14/2025 Please refer to medication order for dispensing pharmacy information Please call with additional questions: [facility] documented in this encounter Plan of Treatment Upcoming Encounters Date Type Department Care Team (Late st Contact Info) Description 01/07/2025 11:30 AM EDT Office Visit [facility] Rheumatology [address] [place] [address] Petrona Nash MD [address] [place] [address], [address] [place] [address] [email or web address] documented as of this encounter Visit Diagnoses Not on filedocumented in this encounter Care Teams Freelance Writer Relationship Specialty Start Date End Date Michael Schmidt MD [address] [place] [id number] PCP - General Internal Medicine 09/07/24 documented as of this encounter Additional Source Comments The information contained in this document represents components of the legal health record. It is not the complete legal health record.[facility]
== END 2024-12-18 10:07 | disposition home or self-care (01) ==
LOC: HO.HSM 09:29
PROVIDERS: PCP Internal Medicine; Visit Provider Psychiatry & Neurology Neurology
DX: R41.3 Other amnesia (principal); F43.10 Post-traumatic stress disorder, unspecified
CPT/HCPCS: 99214

== ENCOUNTER → 2024-12-18 09:28 | Outpatient (BNVA) | payer OTHER, SELFPAY | PROVIDERS: PCP Internal Medicine; Visit Provider Psychiatry & Neurology Neurology | DX: R41.3 Other amnesia (principal); F43.10 Post-traumatic stress disorder, unspecified | CPT/HCPCS: 99212 ==